=== PATIENT | female | born 1985 | race American Indian/Alaskan Native ===

== ENCOUNTER 2017-02-25 07:35 | Emergency (ER) | payer SELFPAY ==
[2017-02-25 08:23] VITALS: BP 162/95
[2017-02-25 09:00] LABS: Bacteria,Urine 1+ /HPF (Negative); Bilirubin,Urine NEG (Negative); Blood,Urine LG (Negative); Ketones,Urine NEG (Negative); Leukocyte Esterase,Urine MOD (Negative); Nitrite,Urine NEG (Negative); Protein,Urine <15 mg/dL mg/dL (Negative); Urobilinogen,Urine < 2.0 mg/dL (<2.0)
== END 2017-02-25 19:07 | disposition left against medical advice (07) ==
LOC: ED 07:35
DX: R10.9 Unspecified abdominal pain (principal); Z53.21 Procedure and treatment not carried out due to patient leaving prior to being seen by health care provider
CPT/HCPCS: 81001; 81025

== ENCOUNTER 2017-02-25 20:29 | Emergency (ER) | payer OTHER ==
--- NOTE | 2017-02-25 22:33 | Emergency Department Report ---
ED HPI - General Chief complaint: OB/Uterine Contractions Stated complaint: POS /ULTRASOUND Time Seen by Provider: 02/25/17 22:20 Source: patient Mode of arrival: Ambulatory Limitations: No Limitations - History of Present Illness Initial comments: 31 YO FEMALE WITH CHIEF C/O LOWER BACK PAIN. PT FELT THAT SHE HAD TO HAVE A BOWEL MOVEMENT BUT NOTHING WAS COMING OUT. PT TOOK PAIN MEDICATION SHE PURCHASED FROM [facility] AND WENT HOME.PT PURCHASED BENGAY PATCH FOR HER BACK. PT WAS CALLED AND INFORMED THAT SHE WAS AND THUS SHE RETURNED TO THE HOSPITAL TO BE EVALUATED. THIS IS HER FIRST . SHE ADMITS TO H/O GONORRHEA MD Complaint: vaginal bleeding -: Gradual Radiation: none Quality: cramping, aching Consistency: now resolved Improves with: medication (BENGAY PATCH) Worsens with: none Associated symptoms: vaginal bleeding Vaginal bleeding: light :: Yes OB History - Previous Pregnancies: other (NONE) Pre-barbra care: none - Related Data Previous Rx's Medication Instructions Recorded Last Taken Type Nitrofurantoin Monohyd/M-Cryst 100 mg PO BID #14 capsule 02/25/17 Unknown Rx [Macrobid 100 mg Capsule] Allergies Allergy/AdvReac Type Severity Reaction Status Date / Time No Known Allergies Allergy Unverified 02/25/17 08:20 ED Review of Systems ROS: Stated complaint: POS /ULTRASOUND Other details as noted in HPI Constitutional: denies: chills, fever Eyes: denies: eye pain, eye discharge, vision change ENT: denies: ear pain, throat pain Respiratory: denies: cough, shortness of breath, wheezing Cardiovascular: denies: chest pain, palpitations Endocrine: no symptoms reported Gastrointestinal: denies: abdominal pain, nausea, diarrhea Genitourinary: denies: urgency, dysuria, discharge Musculoskeletal: denies: back pain, joint swelling, arthralgia Skin: denies: rash, lesions Neurological: denies: headache, weakness, paresthesias Psychiatric: denies: anxiety, depression Hematological/Lymphatic: denies: easy bleeding, easy bruising ED Past Medical Hx - Past Medical History Previous Medical History?: Yes Additional medical history: GONORRHEA - Surgical History Past Surgical History?: No - Family History Family history: no significant - Social History Smoking Status: Never Smoker Substance Use Type: None - Medications Home Medications: Home Medications Medication Instructions Recorded Confirmed Last Taken Type Nitrofurantoin Monohyd/M-Cryst 100 mg PO BID #14 capsule 02/25/17 Unknown Rx [Macrobid 100 mg Capsule] ED Physical Exam - General Limitations: No Limitations General appearance: alert, in no apparent distress - Head Head exam: Present: atraumatic, normocephalic - Eye Eye exam: Present: normal appearance - ENT ENT exam: Present: mucous membranes moist - Neck Neck exam: Present: normal inspection - Respiratory Respiratory exam: Present: normal lung sounds bilaterally. Absent: respiratory distress - Cardiovascular Cardiovascular Exam: Present: regular rate, normal rhythm. Absent: systolic murmur, diastolic murmur, rubs, gallop - GI/Abdominal GI/Abdominal exam: Present: soft, normal bowel sounds - Rectal Rectal exam: Present: deferred - External exam: Present: lesions (MULTIP[LE HEALED HIDRADENITIS SUPPURATIVA), bleeding Speculum exam: Present: cervical discharge (YELLOW MUCOID), vaginal bleeding Bi-manual exam: Present: normal bi-manual exam. Absent: cervical motion tendernes, adnexal tenderness, adnexal mass - Extremities Exam Extremities exam: Present: normal inspection, full ROM - Back Exam Back exam: Present: normal inspection, full ROM - Neurological Exam Neurological exam: Present: alert, oriented X3, CN II-XII intact - Psychiatric Psychiatric exam: Present: normal affect, normal mood - Skin Skin exam: Present: warm, dry, intact, normal color. Absent: rash ED Course Vital Signs 02/25/17 21:41 Temperature 99.2 F Pulse Rate 135 H Respiratory 14 Rate Blood Pressure 152/86 [Left] O2 Sat by Pulse 99 Oximetry - Reevaluation(s) Reevaluation #1: 02/26/17 00:03 PT WILL NOT WAIT FOR LAB RESULTS SUCH AT RH FACTOR AND BLOOD TYPE. AND WET PREP. PT INSISTS SHE MUST GO TO WORK TOMORROW AND WILLNOT WAIT. 02/26/17 00:07 ED Medical Decision Making - Lab Data Result diagrams: 02/25/17 22:56 02/25/17 22:56 - Radiology Data Radiology results: report reviewed (US TRANSVAGINAL: NO FETUS IN UTERUS, ? RETAINED PRODUCTS OF CONCEPTION) Critical care attestation.: If time is entered above; I have spent that time in minutes in the direct care of this critically ill patient, excluding procedure time. ED Disposition Clinical Impression: Threatened , Hidradenitis suppurativa, Tachycardia UTI (urinary tract infection) Qualifiers: Urinary tract infection type: acute cystitis Hematuria presence: with hematuria Qualified Code(s): N30.01 - Acute cystitis with hematuria Anemia Qualifiers: Anemia type: unspecified type Qualified Code(s): D64.9 - Anemia, unspecified Disposition: [id number] WITHIN INST TO HOSP Is pt being admited?: No Does the pt Need Aspirin: No Condition: Stable Instructions: Threatened Miscarriage (ED), Urinary Tract Infection in Women (ED ), Anemia (ED) Additional Instructions: PLEASE RETURN IN TWO DAYS TO HAVE YOUR QUANTITATIVE HCG CHECKED AGAIN. WE ARE NOT ABLE TO TELL IF THIS IS AN EARLY OR A MISCARRIAGE OR THE BABY IN THE WRONG PLACE LIKE YOUR OVARY OR YOUR TUBE. Prescriptions: Nitrofurantoin Monohyd/M-Cryst [Macrobid 100 mg Capsule] 100 mg PO BID #14 capsule Referrals: PRIMARY CARE, [Primary Care Provider] - 3-5 Days Forms: AMA Form Time of Disposition: 23:47
[2017-02-25] MEDS ORDERED: ZITHROMAX PO ONE (22:42)
[2017-02-25] MEDS ORDERED: XYLOCAINE 1% MPF 5 mL INFILTRATI ONE (22:42)
[2017-02-25] MEDS ORDERED: ROCEPHIN IM ONE (22:42)
--- NOTE | 2017-02-25 22:44 | Ultrasound Report ---
FINAL REPORT PROCEDURE: US OB TRANSVAGINAL TECHNIQUE: Real-time transvaginal sonography of the uterus, placenta, amniotic fluid, adnexa, and fetus was performed with image documentation. Measurements were obtained to determine age/size. M-mode Doppler was used to document heartbeat. CPT 06854 HISTORY: , High BP, vag bleeding, cramping COMPARISON: No prior studies are available for comparison. FINDINGS: Uterus is anteverted and measures 8 x 5 x 5.5 centimeters. Endometrium is 13 millimeters in thickness. Complex echoes are identified in the cervical canal. There is no evidence of any intrauterine gestational sac at the present time. Right ovary measures 3.7 x 2.4 x 2.7 centimeters and left ovary measures 2.8 x 2.1 x 2.8 centimeters demonstrating normal Doppler signal. There is no free fluid in the pelvic cavity. IMPRESSION: No evidence of any intrauterine gestational sac at the present time. Mixed echoic contents in the cervical canal may represent retained products of conception in the appropriate clinical setting. Clinical correlation and follow-up studies are recommended. 2. EDC by US .
--- NOTE | 2017-02-25 22:48 | Ultrasound Report ---
FINAL REPORT PROCEDURE: US OB < = 14 WEEKS FETUS TECHNIQUE: Real-time transabdominal sonography of the uterus, placenta, amniotic fluid, adnexa, and fetus was performed with image documentation. Measurements were obtained to determine age/size. M-mode Doppler was used to document heartbeat. CPT 42371 HISTORY: , High BP, vag bleeding, cramping COMPARISON: No prior studies are available for comparison. FINDINGS: Uterus is anteverted and measures 8 x 5 x 5.5 centimeters. Endometrium is 13 millimeters in thickness. Complex echoes are identified in the cervical canal. There is no evidence of any intrauterine gestational sac at the present time. Right ovary measures 3.7 x 2.4 x 2.7 centimeters and left ovary measures 2.8 x 2.1 x 2.8 centimeters demonstrating normal Doppler signal. There is no free fluid in the pelvic cavity. IMPRESSION: No evidence of any intrauterine gestational sac at the present time. Mixed echoic contents in the cervical canal may represent retained products of conception in the appropriate clinical setting. Clinical correlation and follow-up studies are recommended.
[2017-02-25 23:09] LABS: Bacteria,Urine 1+ /HPF (Negative); Bilirubin,Urine NEG (Negative); Blood,Urine LG (Negative); Ketones,Urine TR mg/dL (Negative); Leukocyte Esterase,Urine LG (Negative); Nitrite,Urine NEG (Negative); RBC,Urine > 182.0 /HPF (0.0-6.0); Urobilinogen,Urine < 2.0 mg/dL (<2.0)
[2017-02-25 23:12] LABS: Hematocrit 27.2 % (30.3-42.9); Mean Corpuscular HGB Conc 33 % (30-34); Mean Corpuscular Hemoglobin 28 pg (28-32); Mean Corpuscular Volume 83 fl (79-97); Platelet Count 320 K/mm3 (140-440); Red Blood Count 3.26 M/mm3 (3.65-5.03); White Blood Count 18.4 K/mm3 (4.5-11.0)
[2017-02-25 23:13] LABS: Basophils % (Auto) 0.4 % (0.0-1.8); Eosinophils % (Auto) 0.3 % (0.0-4.3)
[2017-02-25 23:35] LABS: Alanine Aminotransferase 7 units/L (7-56); Alkaline Phosphatase 62 units/L (35-129); Anion Gap 21 mmol/L; BUN/Creatinine Ratio 14; Bilirubin,Total < 0.20 mg/dL (0.1-1.2); Blood Urea Nitrogen 11 mg/dL (7-17); Calcium 9.2 mg/dL (8.4-10.2); Carbon Dioxide 21 mmol/L (22-30); Chloride 102.4 mmol/L (98-107); Glucose 136 mg/dL (65-100); Potassium 3.8 mmol/L (3.6-5.0); Sodium 141 mmol/L (137-145)
[2017-02-26 01:23] LABS: Albumin/Globulin Ratio 1.2 %; Total Protein 7.4 g/dL (6.3-8.2)
[2017-02-26 06:44] VITALS: BP 142/78
== END 2017-02-26 00:10 | disposition swing bed (61) ==
LOC: ED 20:29
DX: O20.0 Threatened abortion (principal); O23.42 Unspecified infection of urinary tract in pregnancy, second trimester; O99.012 Anemia complicating pregnancy, second trimester; O26.892 Other specified pregnancy related conditions, second trimester; L73.2 Hidradenitis suppurativa; R00.0 Tachycardia, unspecified; Z3A.14 14 weeks gestation of pregnancy
CPT/HCPCS: 36415; 76801; 76817; 80053; 81001; 84702; 85025; 86900; 86901; 96372; 99284; J0696